=== PATIENT | female | born 1990 | race Caucasian/White ===

== ENCOUNTER 2017-06-10 23:41 | Day surgery (SDC) | payer OTHER ==
[2017-06-11 00:17] VITALS: BMI 22.8
[2017-06-11] MEDS ORDERED: Morphine 10 MG/ML VIAL IM SCH (02:15)
--- NOTE | 2017-06-11 04:56 | PRG ---
DATE OF SERVICE: 06/10/2017 PRIMARY OB: Dr. Ursula Hayes CHIEF COMPLAINT: Abdominal pains. HISTORY OF PRESENT ILLNESS: The patient is a 27-year-old G1, P0 female with an intrauterine pregnan cy at 39 weeks and a day who is presenting to Labor and Delivery with abdominal pains that have been present since shortly after she saw Dr. Hayes earlier in the day. She reports that Dr. Hayes s wept her membranes. She reports that in the last several hours, the pains have become more severe a nd more regular. The patient reports that at the time of cervical exam that she was 3-4 cm and 80-9 0% effaced. The patient denies any recent illness, fever, fall, headache, chest pain, shortness of breath, nausea, vomiting, diarrhea, constipation, any new rashes, any hip problems, knee problems, v aginal bleeding or leakage of fluid. She does report she has been having some bloody show. PAST MEDICAL HISTORY: Genital herpes for which she is on Valtrex prophylactically and for hypothyro idism for which she takes 50 mcg of levothyroxine. PAST SURGICAL HISTORY: She has had her wisdom teeth removed. SOCIAL HISTORY: Reports tobacco use prior to the , but has been abstinent from tobacco sin ce the was discovered. She denies any alcohol or drug use. ALLERGIES: No known drug allergies. MEDICATIONS: She is on Valtrex, levothyroxine, vitamins and iron. OB LABS: Unavailable at this time. REVIEW OF SYSTEMS: Per HPI. PHYSICAL EXAMINATION: VITAL SIGNS: Blood pressure 130/84, heart rate of 100, respiratory rate of 18, satting 99% on room air. GENERAL: She appears to be in no acute distress. She is alert and oriented, and cooperative and pl easant to interact with. She does have some minimal distress with contractions. HEENT: Head is normocephalic, atraumatic. LUNGS: Clear to auscultation bilaterally. HEART: Regular rate and rhythm. ABDOMEN: Soft in between contractions and gravid. EXTREMITIES: Nontender, nonedematous. She has no CVA tenderness. Cervical exam per nursing staff is 3-1/2, 80 and -2 station. heart tracing performed for threatened labor for a total of 45 minutes. Baseline is noted to be in the 130s with moderate long-term variability, positive accelerations, no decelerations. Contr actions are irregular, 2-7 minutes apart. After 2 hours, the patient has had unchanged cervical exa m. ASSESSMENT AND PLAN: The patient is a 27-year-old G1, P0 female with an intrauterine at 3 9 weeks, having term contractions without labor. She may be in early stages of latent labor and has had no cervical change since seeing Dr. Hayes earlier in the day. The patient will be discharged to home. Fetus has a reactive NST. The patient has been given 6 mg of morphine IM to ease her lita n for the next several hours. The patient has been given term precautions and will return with stro nger contractions, leakage of fluid or blood vaginal bleeding.
== END 2017-06-11 02:33 | disposition home or self-care (01) ==
LOC: L&D/OP 23:41
PROVIDERS: ATTEND Student in an Organized Health Care Education/Training Program
DX: O47.1 False labor at or after 37 completed weeks of gestation (principal); O98.513 Other viral diseases complicating pregnancy, third trimester; A60.00 Herpesviral infection of urogenital system, unspecified; O99.283 Endocrine, nutritional and metabolic diseases complicating pregnancy, third trimester; E03.9 Hypothyroidism, unspecified; Z79.899 Other long term (current) drug therapy; Z3A.39 39 weeks gestation of pregnancy; Z87.891 Personal history of nicotine dependence
CPT/HCPCS: J2270

== ENCOUNTER 2017-06-11 15:57 | Day surgery (SDC) | payer OTHER ==
[2017-06-11 16:46] VITALS: BP 114/72; TEMP 97.9
--- NOTE | 2017-06-11 17:33 | PDOC.LDHP ---
Labor and Delivery H&P Chief complaint: contractions HPI: 27 y/o at 39w1d, patient of Dr. Hayes, presents with ctx q4-5 mins. Was seen this morning and SVE was 3.5/80/-2. Denies VB, LOF, ctx or decreased FM. ROS neg for HEENT, cv, pulm, gi, gu, neuro, psych, skin, musculoskeletal, or constitutional symptoms other than mentioned above. OB History Details: 1 prior SAB Current complications: none Past Medical History: Hypothyroid Genital herpes Current medications: pre-tyson vitamins, other (Valtrex) Previous surgical history: none Allergies/Adverse Reactions: Allergies Allergy/AdvReac Type Severity Reaction Status Date / Time No Known Allergies Allergy Verified 06/11/17 00:07 Social history: none - Physical Exam Vital signs reviewed and normal: yes General: NAD, resting Lungs: nonlabored breathing Abdomen: gravid Extremeties: no edema FHT: category 1 (130s, mod variability, + accels, no decels) [place] contractions every: q3, spaced out to q5-8mins - Vaginal Exam cm dilated: 4 (Unchanged after 1 hour) Effacement: 90% Station: -2 - Assessment 27 y/o at 39w1d with no e/o active labor. status reassuring with reactive NST. - Plan -: D/c home with precautions. Advised to keep all appointments.
[2017-06-11 17:51] VITALS: BMI 22.8
[2017-06-11] MEDS ORDERED: FLU VACC QS2017-18 36 mo. & older 0.5 ML SYRINGE IM ONE (18:15)
== END 2017-06-11 17:40 | disposition home or self-care (01) ==
LOC: L&D/OP 15:57
PROVIDERS: ATTEND Student in an Organized Health Care Education/Training Program
DX: O47.1 False labor at or after 37 completed weeks of gestation (principal); O99.283 Endocrine, nutritional and metabolic diseases complicating pregnancy, third trimester; E03.9 Hypothyroidism, unspecified; Z79.899 Other long term (current) drug therapy; Z3A.39 39 weeks gestation of pregnancy; Z87.42 Personal history of other diseases of the female genital tract; Z87.891 Personal history of nicotine dependence
CPT/HCPCS: 96372; J2270

== ENCOUNTER 2017-06-12 20:46 | Inpatient (IN) | payer OTHER ==
[2017-06-12] MEDS ORDERED: Fentanyl 4 mcg/Marc 0.1% Cadd 100 ML ONE (21:10)
[2017-06-12] MEDS ORDERED: LR / Pitocin 40 units/1000 ml 1,000 ML IV PRN (21:13)
[2017-06-12] MEDS ORDERED: Acetaminophen/Codeine 30-300mg Tablet PO PRN ×2 (21:13)
[2017-06-12] MEDS ORDERED: Ondansetron HCl/PF 4 MG/2 ML Vial IVP PRN ×2 (21:13→21:59)
[2017-06-12] MEDS ORDERED: Ibuprofen 800 MG TAB PO PRN (21:13)
[2017-06-12] MEDS ORDERED: Lidocaine 1% (PF) 30 ML VIAL SC PRN (21:13)
[2017-06-12] MEDS ORDERED: Lactated Ringer's 1,000 ML IV SCH (21:15)
[2017-06-12 21:21] VITALS: BMI 22.8
[2017-06-12 21:45] LABS: Hematocrit 42.1 % (36.0-47.0); Mean Platelet Volume 8.1 fL (7.4-10.4); Red Blood Cell (RBC) Count 4.34 mill/uL (4.20-5.40); White Blood Cell (WBC) Count 26.5 thou/uL (4.8-10.8)
[2017-06-12] MEDS ORDERED: Acetaminophen 325 MG TAB PO PRN (21:59)
[2017-06-12] MEDS ORDERED: Eucerin (Mineral Oil/Petrolatum,White) 30 gm Jar TOP PRN (21:59)
[2017-06-12] MEDS ORDERED: Promethazine HCl 25 MG/ML VIAL IM PRN (21:59)
[2017-06-12] MEDS ORDERED: diphenhydrAMINE 50 MG/ML VIAL IVP PRN (21:59)
[2017-06-12] MEDS ORDERED: ePHEDrine/0.9% NaCl/PF SYRINGE 50 mg/10 ml SLOW IVP PRN (21:59)
[2017-06-12] MEDS ORDERED: Naloxone HCl 0.4 mg/ml Vial IVP PRN ×2 (21:59)
[2017-06-12] MEDS ORDERED: Lactated Ringer's 500 ML IV PRN (21:59)
[2017-06-12] MEDS ORDERED: Communication Order-Pharmacy FS SCH (22:00)
[2017-06-12] MEDS ORDERED: Fentanyl 4mcg/Marcaine 0.1% Cassette 100 ML EPIDURAL SCH (22:00)
[2017-06-12] MEDS: Lactated Ringer's 1,000 ML IV SCH (22:18)
[2017-06-12] MEDS ORDERED: CEFAZOLIN/Water 2 GM/20 ML SYRINGE ONE (23:45)
[2017-06-13] MEDS ORDERED: Oxytocin 10 UNITS/ML VIAL ONE (00:01)
[2017-06-13] MEDS ORDERED: Dexamethasone 4 mg/ml Vial ONE (00:01)
[2017-06-13] MEDS ORDERED: Ondansetron HCl/PF 4 MG/2 ML Vial ONE (00:01)
[2017-06-13] MEDS ORDERED: Ketorolac Tromethamine 30 MG/ML VIAL ONE (00:01)
[2017-06-13] MEDS ORDERED: Morphine PF 1 MG/ML SYR ONE (00:01)
[2017-06-13] MEDS ORDERED: Naloxone HCl 0.4 mg/ml Vial IV PRN (00:15)
[2017-06-13] MEDS ORDERED: Naloxone HCl 0.4 mg/ml Vial IVP PRN ×2 (00:15)
[2017-06-13] MEDS ORDERED: diphenhydrAMINE 50 MG/ML VIAL IVP PRN (00:15)
[2017-06-13] MEDS ORDERED: Meperidine HCl/PF 25 MG/ML VIAL SLOW IVP PRN (00:15)
[2017-06-13] MEDS ORDERED: Promethazine HCl 25 MG/ML VIAL IM PRN (00:15)
[2017-06-13] MEDS ORDERED: Promethazine HCl 25 MG SUPP PR PRN (00:15)
[2017-06-13] MEDS ORDERED: Ketorolac Tromethamine 30 MG/ML VIAL IVP SCH (00:15)
[2017-06-13] MEDS ORDERED: Ondansetron HCl/PF 4 MG/2 ML Vial IVP PRN ×2 (00:15)
[2017-06-13] MEDS ORDERED: Eucerin (Mineral Oil/Petrolatum,White) 30 gm Jar TOP PRN (00:15)
[2017-06-13] MEDS ORDERED: Communication Order-Pharmacy FS SCH (00:15)
[2017-06-13] MEDS ORDERED: Ketorolac Tromethamine 30 MG/ML VIAL IVP PRN (00:15)
[2017-06-13] MEDS ORDERED: HYDROmorphone 2 MG/ML VIAL SLOW IVP PRN (00:15)
[2017-06-13] MEDS ORDERED: Fentanyl 100 MCG/2 ML VIAL ONE (00:26)
[2017-06-13] MEDS ORDERED: Meperidine HCl/PF 25 MG/ML VIAL ONE ×2 (00:36→00:44)
[2017-06-13 00:39] LABS: CO2 Tension (PaCO2) 61.3 mmHg (44.0-56.0)
--- NOTE | 2017-06-13 06:27 | OP ---
DATE OF PROCEDURE: 06/13/2017 PREOPERATIVE DIAGNOSES: 1. Intrauterine at 39 weeks. 2. Nonreassuring heart tones. 3. Remote from delivery. POSTOPERATIVE DIAGNOSES: 1. Intrauterine at 39 weeks. 2. Nonreassuring heart tones. 3. Remote from delivery. 4. Velamentous cord insertion. PROCEDURE: Primary lower transverse section. SURGEON: Colten Walker M.D. GREASER AND OILER: Florian Dennis M.D. ESTIMATED BLOOD LOSS: 800 mL URINE: Clear at the end of the procedure. COMPLICATIONS: None. COUNTS: Correct. FINDINGS: Female infant delivered in vertex presentation with a nuchal cord delivered at 0024 hours on 06/13/2017 at a gestational age of 39 weeks and 2 days. Apgars were 8 and 9. Weight was 3094 g darren. Normal appearing uterus, tubes, and ovaries. Placenta had a velamentous cord insertion. DESCRIPTION OF PROCEDURE: The patient is a 27-year-old G1, P0 female with an intrauterine at 39 weeks and 3 days, who presented to labor and delivery in labor and with rupture of membranes. She was 5.5 cm, 90% effaced, -1 station. On presentation, the fetus was tachycardic with minimal variability with series of repetitive lates over the ensuing several hours. Resuscitative measures would help transiently. The tachycardia became worse and minimal variability persisted and subtle l ate decelerations persisted. After trying multiple measures to resolve the heart tracing, a d ecision was made to proceed with a primary . Concerns were shared with the patient and who agreed to move forward with . The primary OB physician, Dr. Ursula Hayes, was notified , however, was unavailable. The patient was taken back to the operating room where she had her epid ural bolused and she was placed in a dorsal supine position with a leftward tilt. She was prepared and draped in normal sterile fashion. Once the anesthesia was confirmed adequate, a Pfannenstiel sk in incision was made and carried down to the level of the fascia. The fascia was incised and extend ed laterally with Tan scissors with the aide of Marino clamps. The fascia was elevated off the und erlying rectus muscles superiorly and inferiorly. The peritoneal cavity was entered into bluntly an d sharply and the peritoneal defect was then extended bluntly. An Cecilio O retractor was then inser layton into the abdominal cavity. A bladder flap was created giving more space between the lower uteri ne segment and the bladder itself. A hysterotomy was performed in a transverse fashion in the lower uterine segment. The fetus was delivered to the sterile field in vertex presentation. A nuchal co rd was noted at that time. Mouth and nose were bulb suctioned. Cord was clamped and cut and the in german was handed off to the waiting attendants. A cord segment was sent for blood gas. The placenta was then extracted manually and the uterus was cleared out of all clot and debris with a #1 Monocry l. The hysterotomy was closed in a running locked fashion. Good hemostasis was noted. The periton eum was closed with 3-0 chromic in a running fashion. Prior to closure of the peritoneum, inspectio n of the uterus and tubes and ovaries appeared normal appearing anatomy. The peritoneum was then cl osed and then the fascia was closed with 0 Vicryl in a running fashion. The subcutaneous fat was cl osed with 3-0 plain gut in a running fashion and skin was closed with 4-0 Monocryl in a running fash ion. The patient was then taken to recovery room in stable condition. Blood gas of the cord segmen t was 7.23 with a base excess of 4.2, CO2 of 61, and bicarbonate of 24.
[2017-06-13] MEDS: Lactated Ringer's 1,000 ML IV SCH ×4 (07:32→21:47)
[2017-06-13] MEDS ORDERED: Bisacodyl 10 MG SUPP PR PRN (10:35)
[2017-06-13] MEDS ORDERED: Lanolin Ointment 7 GM TUBE TOP PRN (10:35)
[2017-06-13] MEDS ORDERED: diphenhydrAMINE 25 MG CAP PO PRN (10:35)
[2017-06-13] MEDS ORDERED: Simethicone Chewable 80 MG TAB PO PRN (10:35)
[2017-06-13] MEDS ORDERED: Adacel (T-DAP) 0.5 ML VIAL IM ONE (10:35)
--- NOTE | 2017-06-13 10:39 | PDOC.PP ---
Post Progress Note Post Day #: 0 PO intake tolerated: no Flatus: no Ambulation: no Vital Signs (12 hours) Temp Pulse Resp BP Pulse Ox 06/13/17 09:30 98 F 99 18 104/55 L 97 06/13/17 06:28 98.7 F 94 16 108/62 06/13/17 05:15 98.8 F 94 18 98/54 L 06/13/17 04:00 98.1 F 81 18 104/62 Weight Weight 125 lb - Physical Examination General: NAD Cardiovascular: RRR Respiratory: non-labored breathing Abdominal: no distention, appropriately TTP Fundus firm & at: umb Extremities: negative homans (B) Skin: no rash Neurological: no gross focal deficits Psychiatric: normal affect Result Diagrams: 06/12/17 21:09 Additional Labs: Post Labs Hep Bs Antigen Non-Reactive S/CO (NonReactive) 06/12/17 21:09 (1) Non-reassuring cardiotocographic tracing Code(s): O76 - ABNLT IN HEART RATE AND RHYTHM COMP LABOR AND DELIVERY Status: Acute (2) delivery delivered Code(s): O82 - ENCOUNTER FOR DELIVERY WITHOUT INDICATION Status: Acute - Assessment/Plan POD0 from emergent CS for NRFHT. VSSAF. Routine advances. . Pain meds prn. Hemagram in am. Rh pos RImm. Cont postop care. Home on Friday.
[2017-06-13] MEDS: Ferrous Sulfate 325 MG TAB PO SCH (12:52)
[2017-06-13] MEDS: HYDROcodone/Acetaminophen 5/325 mg Tablet PO PRN (18:38)
[2017-06-13] MEDS: Docusate Calcium (SURFAK) 240 MG CAP PO SCH (21:45)
[2017-06-14] MEDS: Lactated Ringer's 1,000 ML IV SCH ×3 (03:41→22:53)
[2017-06-14 05:44] LABS: Hematocrit 30.2 % (36.0-47.0); Mean Platelet Volume 7.3 fL (7.4-10.4); Red Blood Cell (RBC) Count 3.06 mill/uL (4.20-5.40); White Blood Cell (WBC) Count 24.7 thou/uL (4.8-10.8)
[2017-06-14] MEDS: Ibuprofen 800 MG TAB PO SCH ×3 (05:59→21:24)
[2017-06-14 07:13] LABS: Hematocrit 27.9 % (36.0-47.0)
--- NOTE | 2017-06-14 07:33 | PRG ---
DATE OF SERVICE: 06/14/2017 LOCATION: [facility], patient in room 344. POSTOP DAY #1 HOSPITAL REVIEW: In brief, this is a patient that was admitted as a 27-year-old 1, para 0 w ith an intrauterine at 39 weeks who presented with spontaneous onset of labor and rupture of membranes and was noted to be 5-6 cm dilated. On presentation, the fetus was tachycardic with mi nimal variability and series of repetitive late decelerations that did not resolve. That tachycardi a became worse with minimal variability and so she underwent a primary section for nonreass uring heart tones. According to the operative note, the skin was closed with 4-0 Monocryl per routine. I evaluated the patient on postop day #1. SUBJECTIVE: The patient is doing well without acute concern. OBJECTIVE: VITAL SIGNS: Reviewed, temperature ranges from 98.3-98.4. The patient has had occasional slightly elevated pulse with a value of 103 noted yesterday on 06/13/2017 at 2011, but otherwise was in the 9 0s. Respirations are 16-20 and unlabored, blood pressure ranges from 103/57-90/55. LABORATORY ASSESSMENT: The patient's predelivery hematocrit value was 42, value is 30.2. Patient's hepatitis B surface antigen and syphilis serologies were negative on admission. The bab y's cord arterial pH was 7.23 at delivery. On physical exam, abdomen was soft and nontender and incision was sutured and it was intact. There was no evidence of metritis on inspection. ASSESSMENT: This is a patient who is postoperative day #1 who is doing well status post primary C-s ection for nonreassuring heart tones. PLAN: 1. Continue routine care. 2. I have ordered a repeat hematocrit value for later today to document stability. There are no si gns or symptoms of hypovolemia at this time. 3. Continue routine postop care. 4. No evidence of gastrointestinal ileus or other postop complication.
[2017-06-14] MEDS: HYDROcodone/Acetaminophen 5/325 mg Tablet PO PRN ×2 (07:56→20:18)
[2017-06-14] MEDS: Prenatal Vitamin 1 TAB PO SCH (09:37)
[2017-06-14] MEDS: Docusate Calcium (SURFAK) 240 MG CAP PO SCH ×2 (09:37→20:17)
[2017-06-14] MEDS: Ferrous Sulfate 325 MG TAB PO SCH ×2 (09:37→17:53)
[2017-06-15] MEDS: HYDROcodone/Acetaminophen 5/325 mg Tablet PO PRN ×2 (06:22→12:20)
[2017-06-15] MEDS: Ibuprofen 800 MG TAB PO SCH ×2 (06:22→14:37)
[2017-06-15] MEDS: Lactated Ringer's 1,000 ML IV SCH ×2 (06:25→14:26)
--- NOTE | 2017-06-15 06:43 | PDOC.PP ---
Post Progress Note Post Day #: 2 Subjective: feels good. baby bili lights. repeat hct was 28% PO intake tolerated: yes Flatus: yes Ambulation: yes Vital Signs (12 hours) Temp Pulse Resp BP BP Pulse Ox 06/15/17 00:00 98.0 F 80 18 100/55 L 06/14/17 20:00 98.3 F 95 18 100/59 L 98 Weight Weight 125 lb - Physical Examination General: NAD Cardiovascular: no m/r/g, RRR Respiratory: clear to auscultation bilaterally Abdominal: + bowel sounds, lochia Extremities: negative homans (B) Skin: CS incision dry & intact Neurological: no gross focal deficits Psychiatric: A&Ox3, normal affect Result Diagrams: 06/14/17 06:59 Additional Labs: Post Labs Hep Bs Antigen Non-Reactive S/CO (NonReactive) 06/12/17 21:09 - Assessment/Plan doing well. possible pm dc vs am 06/16 due to baby bili tx
[2017-06-15 07:52] VITALS: BP 96/54; TEMP 98.1
[2017-06-15] MEDS: Ferrous Sulfate 325 MG TAB PO SCH (10:00)
[2017-06-15] MEDS: Prenatal Vitamin 1 TAB PO SCH (10:00)
[2017-06-15] MEDS: Docusate Calcium (SURFAK) 240 MG CAP PO SCH (10:00)
--- NOTE | 2017-06-15 14:03 | PDOC.EVN ---
Event Note - Event Note Event Note: DISCHARGE NOTE: Patient cleared for discharge by Dr Zhao earlier today. Child also cleared for discharge. The patient is s/p primary CS for nonreassurring heart tones. Vitals stable, afebrile. No evidence complication. Keep scheduled follow up. Home with rosita and michael.
== END 2017-06-15 16:40 | disposition home or self-care (01) | DRG 766 ==
LOC: L&D/OP 20:46 → L&D 21:35 → 3SW 06-13 03:55
PROVIDERS: ADMIT Student in an Organized Health Care Education/Training Program; ATTEND Student in an Organized Health Care Education/Training Program
PROC: 10D00Z1 Extraction of Products of Conception, Low, Open Approach (ICD-10-PCS; principal; 2017-06-12)
DX: O76 Abnormality in fetal heart rate and rhythm complicating labor and delivery (principal); O69.81X0 Labor and delivery complicated by cord around neck, without compression, not applicable or unspecified; O43.123 Velamentous insertion of umbilical cord, third trimester; Z3A.39 39 weeks gestation of pregnancy; Z37.0 Single live birth
CPT/HCPCS: 36415; 82805; 85027; 86780; 87340; 88307; J1100; J1885; J2175; J2274; J2405; J2590; J3010